=== PATIENT | female | born 1975 | race Caucasian/White ===

== ENCOUNTER 2022-11-22 08:26 | Outpatient (OUT) | payer OTHER, SELFPAY ==
[2022-11-22 10:35] LABS: Thyroid Stimulating Hormone 2.986 uIU/mL (0.358-3.740)
[2022-11-23 04:07] LABS: Estradiol 30.8 pg/mL (.); FSH 35.8 mIU/mL (.)
[2022-11-28 18:07] LABS: Free Testosterone(Direct) 1.6 pg/mL (0.0-4.2); Testosterone 24 ng/dL (4-50)
== END 2022-11-22 08:27 | disposition home or self-care (01) ==
LOC: LAB 08:26
PROVIDERS: PCP Nurse Practitioner Family; Visit Provider Obstetrics & Gynecology
DX: L65.9 Nonscarring hair loss, unspecified (principal); N95.1 Menopausal and female climacteric states; N89.8 Other specified noninflammatory disorders of vagina; R63.5 Abnormal weight gain
CPT/HCPCS: 36415; 82670; 83001; 84402; 84403; 84443

== ENCOUNTER 2022-11-26 14:29 | Emergency (ER) | payer OTHER, SELFPAY ==
[2022-11-26 14:34] VITALS: BP 120/69; PULSE 93; RESP 18; TEMP 36.5; O2SAT 99; BMI 25.0
--- NOTE | 2022-11-26 14:39 | ED.HEATRA1 ---
HPI - Head Injury General Chief complaint: Head Injury Stated complaint: INSECT BITE Time Seen by Provider: 11/26/22 14:39 Source: patient Mode of arrival: Wheelchair History of Present Illness HPI Narrative: Patient presents to the emergency department with a closed head injury. Patient states she was stung by to her left foot, left hand, and back. Because she was running she jumped into the swimming pool she felt like she was on fire when she got out of the pool she then passed out and hit her head landing on her right lower lip sustaining a laceration. Patient recovered immediately. She denies any nausea, vomiting. She states she feels flushed from the bee stings. She denies any previous history of ALLERGIC reactions. She was so anxious that she was not able to take any Benadryl or antihistamine at home. They cameTo the emergency department immediately. Patient denies any throat swelling. She denies any difficulty swallowing. She denies any chest pain, shortness of breath. He denies being sick with anything recently. She denies any loose dentition. She has a headache. denies any neck pain. She denies any chest pain, shortness of breath, Flank pain, or abdominal pain. Related Data Allergies Allergy/AdvReac Type Severity Reaction Status Date / Time No Known Drug Allergies Allergy Verified 11/26/22 14:38 Review of Systems ROS Status of ROS 10 or more systems reviewed and unremarkable except as noted in history and below Exam Narrative Exam Narrative: Nurses notes and vital signs reviewed and patient is not hypoxic. General: Nontoxic, Well-appearing and in no apparent distress. Skin: Warm, dry, no pallor noted. Localized erythema to the dorsum of the left foot, dorsum of the left hand and right flank. There is no ecchymosis. This is consistent with insect bites. Head: Normocephalic, atraumatic. Neck: Supple, non-tender. Eye: Pupils are equal, round and EOMI. No scleral icterus. Ears, Nose, Mouth, and Throat: TM clear, no posterior oropharynx erythema or nasal mucosal hypertrophy, uvula is mid-line Oral mucosa is moist, Loose dentitioon, no jaw tenderness or step-offs. No malocclusion. Right lower lip laceration last 1-1/2 cm. Does not cross the vermilion border. no active bleeding. Cardiovascular: Regular Rate and Rhythm without murmur, gallop or rub. Respiratory: No accessory muscle use or respiratory distress. Lungs are clear to auscultation, no wheezing, rales or rhonchi Chest Wall: no tenderness Back: No midline thoracic or lumbar vertebral tenderness. No CVA tenderness Musculoskeletal: normal ROM, no calf or popliteal tenderness, no lower extremity edema/swelling GI: Abdomen is soft, non-distended. Normal bowel sounds. No masses appreciated. No tenderness to palpation. No rebound, guarding, or rigidity noted. Neurological: A&O x4. No cranial nerve dysfunction observed. No truncal ataxia. Moves all extremities. Sensation intact. Psychiatric: Cooperative and interactive. Normal mood and affect. Constitutional Vital Signs, click to edit/add: Last Vital Signs Temp 97.7 F 11/26/22 14:34 Pulse 93 H 11/26/22 14:34 Resp 18 11/26/22 14:34 BP 120/69 11/26/22 14:34 Pulse Ox 99 11/26/22 14:34 O2 Del Method Room Air 11/26/22 14:34 Course Vital Signs Vital signs: Vital Signs Temperature 97.7 F 11/26/22 14:34 Pulse Rate 93 H 11/26/22 14:34 Respiratory Rate 18 11/26/22 14:34 Blood Pressure 120/69 11/26/22 14:34 Pulse Oximetry 99 11/26/22 14:34 Oxygen Delivery Method Room Air 11/26/22 14:34 Temperature 97.7 F 11/26/22 14:34 Pulse Rate 93 H 11/26/22 14:34 Respiratory Rate 18 11/26/22 14:34 Blood Pressure 120/69 11/26/22 14:34 Pulse Oximetry 99 11/26/22 14:34 Oxygen Delivery Method Room Air 11/26/22 14:34 MDM - Head Injury MDM Narrative Medical decision making narrative: Patient was given 50 mg of Benadryl by mouth. She was also given Decadron. CT scan of the brain is unremarkable. Laceration repair. The patient was identified by me. Procedure risks and benefits were discussed with patient and/or family. Area was prepped and draped in a sterile fashion. 1ml lidocaine 1% without epinephrine were injected. wound was inspected in full range of motion. Adequate anesthesia was obtained. 2 sutures, interrupted, vicryl 5.0 were used to obtain adequate closure. The edges were well approximated. Antibiotic ointment was applied. Discharge Plan Discharge Chief Complaint: Head Injury Clinical Impression: Closed head injury, Laceration of lip, Bee sting Patient Disposition: Home, Self-Care Time of Disposition Decision: 16:39 Condition: Good Mode of Transportation: Private Vehicle Instructions: Laceration (ED), Insect Bite or Sting (ED), Head Injury (ED), Care For Your Absorbable Stitches (ED) Stand Alone Forms: Portal Instructions Referrals: MONIKA FERREIRA [Primary Care Provider] - 1 week Discharge Date/Time: 11/26/22 16:52
--- NOTE | 2022-11-26 14:46 | CT_ITS ---
The [address] [address] Patient Name: RICK BARAKAT MRN: [id number] date: 1975 Sex: F Assigned Patient Location: Current Patient Location: LAB Accession/Order Number: [id number] Exam Date: 11/26/2022 15:01 Report Date: 11/26/2022 15:23 At the request of: GIULIANA RAI Procedure: CT head/brain wo con EXAMINATION: CT head/brain wo con HISTORY: fall, chi COMPARISON: None TECHNIQUE: CT through the head without intravenous contrast. Dose reduction techniques were achieved by using: automated exposure control and/or adjustment of mA and /or kV according to patient size and/or use of iterative reconstruction technique. FINDINGS: The ventricles and sulci are within normal limits in size and configuration for age. There is no evidence for acute intracranial hemorrhage. There are no foci of abnormal parenchymal attenuation. There is no mass effect or midline shift. There are no abnormal extraaxial fluid collections. CT/CT head/brain wo con IMPRESSION: Negative for acute hemorrhage or acute intracranial process. Electronically authenticated by: LUCI GOEL Date: 11/26/2022 15:23
[2022-11-26] MEDS: DIPHENHYDRAMINE HCL 25 MG CAPSULE 50 MG PO (15:14)
[2022-11-26] MEDS: IBUPROFEN 400 MG TABLET 800 MG PO (15:50)
[2022-11-26] MEDS: DEXAMETHASONE SODIUM PHOSPHATE 10 MG/ML VIAL PO (15:50)
== END 2022-11-26 16:52 | disposition home or self-care (01) ==
PROVIDERS: Emergency Provider Emergency Medicine; PCP Nurse Practitioner Family
DX: S01.511A Laceration without foreign body of lip, initial encounter (principal); S09.8XXA Other specified injuries of head, initial encounter; T63.441A Toxic effect of venom of bees, accidental (unintentional), initial encounter; W22.8XXA Striking against or struck by other objects, initial encounter
CPT/HCPCS: 12011; 70450; 99285; J1100